=== PATIENT | female | born 1945 | race Caucasian/White ===

== ENCOUNTER 2017-01-12 08:54 | Emergency (ER) | payer MEDICARE, OTHER ==
[~2017-01-12] VITALS: Ht 167.6 cm; Wt 78.0 kg
[~2017-01-12 08:54] MED LIST: CIPR500T2 PO; LEVO.15 PO; TYLE3 PO
[2017-01-12 08:57] VITALS: BP 168/77; PULSE 70; RESP 18; TEMP 98.8; O2SAT 97
[2017-01-12] MEDS ORDERED: CARD240C6 PO (09:15)
[2017-01-12] MEDS ORDERED: LEVO137T2 PO (09:15)
[2017-01-12] MEDS ORDERED: [UNRECOGNIZED DRUG - CODE] (09:35)
--- NOTE | 2017-01-12 09:35 | PD ---
HPI Chief Complaint: Laceration/Skin Injury Time Seen by Provider: 09:08 Travel History International Travel<30 days: No Contact w/Intl Traveler<30days: No Traveled to known affect area: No History of Present Illness HPI This is a 71-year-old female who presents to the emergency department having cut her leg on an exercise machine yesterday with moderate severity pain in her left leg, constant, with no associated numbness or weakness. Patient has a significant skin tear on the left leg. She is not sure when her last tetanus shot was but thinks it was more than 5 years ago. PFSH Past Medical History Thyroid Disease: Yes ?: Not Past Surgical History Hysterectomy: Yes Tonsillectomy: Yes Other Surgery: Yes (BREAST BIOPSY WITH LUMPECTOMY) Social History Alcohol Use: Yes (BEER-WEEKLY) Tobacco Use: No Substance Use: No Allergies-Medications (Allergen,Severity, Reaction): Coded Allergies: citric acid (Unverified Allergy, Mild, BLISTERS IN MOUTH, 01/12/17) Reported Meds & Prescriptions Reported Meds & Active Scripts Active Reported Levothyroxine (Levothyroxine Sodium) 137 Mcg Tab 137 Mcg PO DAILY Cardizem CD 24 HR (Diltiazem CD 24 HR) 240 Mg Caper 240 Mg PO DAILY Review of Systems General / Constitutional: No: Fever, Chills Cardiovascular: No: Chest Pain or Discomfort Respiratory: No: Shortness of Breath Physical Exam Narrative GENERAL:Well appearing, no acute distress SKIN: Skin tear 10 cm x 5 cm involving the distal left lower extremity with thin tissue overlying half of the wound HEAD: Atraumatic. Normocephalic. EYES: Pupils equal and round. No injection or drainage. ENT: Moist mucous membranes NECK: Trachea midline. CARDIOVASCULAR: Regular rate and rhythm. No murmur appreciated. RESPIRATORY: Clear to auscultation. Breath sounds equal bilaterally. GASTROINTESTINAL: Abdomen soft, non-tender, nondistended. MUSCULOSKELETAL: No obvious deformities. NEUROLOGICAL: Awake and alert. No obvious cranial nerve deficits. Moving all extremities. PSYCHIATRIC: Appropriate mood and affect; insight and judgment normal. Data Data Last Documented VS Vital Signs Date Time Temp Pulse Resp B/P (MAP) Pulse Ox O2 Delivery O2 Flow Rate FiO2 01/12/17 08:57 98.8 70 18 168/77 (107) 97 MDM Medical Decision Making Medical Screen Exam Complete: Yes Emergency Medical Condition: Yes Differential Diagnosis Skin tear, laceration, wound infection Narrative Course This is a 71-year-old female who presents to the emergency department having injured her leg on an exercise bike. Patient has a 5 x 10 cm skin tear on her left lower extremity. I think it will heal without sutures or repair. Patient was advised to wash twice daily with warm soap and water and apply topical antibiotic. She was advised on using non-adherent dressings. I think patient is safe for discharge. Her tetanus was updated. Diagnosis Primary Impression: Skin tear of lower leg without complication Qualified Codes: S81.812A - Laceration without foreign body, left lower leg, initial encounter Patient Instructions: General Instructions Additional Instructions: If you develop fevers, redness, swelling, or discharge from your wound return to the emergency room. Wash gently with warm soap and water twice daily. Do not use peroxide. Do not soak in baths or go swimming. Apply topical antibiotic twice daily. Med/Other Pt SpecificInfo: Prescription(s) given Scripts Gauze Pads & Dressings (Telfa Non-Adherent Pad 6" 3"X6") 6" X 3" Pad PAD .ROUTE BID, #15 Prov: Kacie Cunningham MD 01/12/17 Disposition: 01 DISCHARGE HOME Condition: Stable Kacie Cunningham MD Jan 12, 2017 09:35
[2017-01-12] MEDS ORDERED: TETANUS/DIPHTHERIA TOXOID ADULT 0.5 ML VIAL IM ONE (10:00)
== END 2017-01-12 09:59 | disposition home or self-care (01) ==
LOC: PHED 08:54
DX: S81.812A Laceration without foreign body, left lower leg, initial encounter (principal); W31.89XA Contact with other specified machinery, initial encounter; Z23 Encounter for immunization
CPT/HCPCS: 90471; 90714